=== PATIENT | female | born 1950 | race Caucasian/White ===

== ENCOUNTER 2019-10-10 16:56 | Emergency (ER) | payer OTHER ==
[2019-10-10 18:06] VITALS: BP 165/70; PULSE 77; TEMP 98; BMI 35.2
--- NOTE | 2019-10-10 19:09 | PDOC ---
Documentation entered by José Miguel Brambila SCRIBE, acting as scribe for Federico Sellers MD. Federico Sellers MD: This documentation has been prepared by the Kosta rodriguez Elijah, SCRIBE, under my direction and personally reviewed by me in its entirety. I confirm that the documentation accurately reflects all work, treatment, procedures, and medical decision making performed by me. History of Present Illness - General Chief Complaint: Injury Stated Complaint: RT HAND,HEAD INJURY History Source: Patient Exam Limitations: No Limitations - History of Present Illness Initial Comments: 10/10/19 17:16 Patient is a 69 year old female who presents today s/p fall yesterday afternoon. Patient reports that she was in the kitchen yesterday near the stove and fell backwards. Patient is unsure as to what promoted the fall but notes that she hit the back of her head, her back and both arms. At this time, the patient presents with pain in her right wrist, tenderness in her back and some head pain. Patient denies LOC, balance issues in the past, and vomiting. Allergies: NKA Past History - Past Medical History Allergies/Adverse Reactions: Allergies Allergy/AdvReac Type Severity Reaction Status Date / Time Penicillins Allergy Verified 10/10/19 17:21 Home Medications: Ambulatory Orders NK [No Known Home Medication] 10/10/19 Review of Systems - Review of Systems Comments:: 10/10/19 17:19 CONSTITUTIONAL: Absent: Fever, Chills, Diaphoresis, Generalized Weakness, Malaise, Loss of Appetite HEENT: Absent: Rhinorrhea, Nasal Congestion, Throat Pain, Throat Swelling, Difficulty Swallowing, Mouth Swelling, Ear Pain, Eye Pain, Visual Changes CARDIOVASCULAR: Absent: Chest Pain, Syncope, Palpitations, Irregular Heart Rate, Lightheadedness , Peripheral Edema RESPIRATORY: Absent: Cough, Shortness of Breath, SOB with Exertion, Orthopnea, Wheezing, Stridor, Hemoptysis GASTROINTESTINAL: Absent: Abdominal pain, Abdominal Distension, Nausea, Vomiting, Diarrhea, Constipation, Melena, Hematochezia GENITOURINARY: Absent: Dysuria, Frequency, Urgency, Hesitancy, Flank Pain, Genital Pain MUSCULOSKELETAL: +Wrist Pain +Back Pain +Head Pain Absent: Myalgia, Arthralgia SKIN: Absent: Rash, Itching, Pallor HEMEATOLOGIC/IMMUNOLOGIC: Absent: Easy Bleeding, Easy Bruising, Lymphadenopathy, Frequent infections ENDOCRINE: Absent: Unexplained Weight Gain, Unexplained Weight Loss, Heat Intolerance, Cold Intolerance NEUROLOGIC: Absent: Headache, Focal Weakness, Paresthesias, Vertigo, Lightheadedness, Unsteady Gait, Seizure, Mental Status Changes, Incontinence PSYCHIATRIC: Absent: Anxiety, Depression *Physical Exam - Vital Signs Last Vital Signs Temp Pulse Resp BP Pulse Ox 98 F 77 20 165/70 100 10/10/19 16:59 10/10/19 16:59 10/10/19 16:59 10/10/19 16:59 10/10/19 16:59 - Physical Exam 10/10/19 19:03 GENERAL: The patient is awake, alert, and fully oriented, in no acute distress. HEAD: The right parietal scalp has mild tenderness but no hematoma. EYES: Pupils equal, round and reactive to light, extraocular movements intact, sclera anicteric, conjunctiva clear. ENT: Ears normal, nares patent, oropharynx clear without exudates. Moist mucous membranes. NECK: Normal range of motion, supple without lymphadenopathy, JVD, or masses. LUNGS: Breath sounds equal, clear to auscultation bilaterally. No wheezes, and no crackles. HEART: Regular rate and rhythm, normal S1 and S2 without murmur, rub or gallop. ABDOMEN: Soft, nontender, normoactive bowel sounds. No guarding, no rebound. No masses. BACK: There is no bony spine tenderness from the cervical spine to the sacrum. EXTREMITIES: Normal range of motion, no edema. No clubbing or cyanosis. No cords or erythema. The right elbow is normal. The left elbow has ecchymosis, but normal range of motion and no bony tenderness. Pronation and supination along with flexion and extension is completely normal. The right wrist has mild diffuse swelling as well as tenderness over the distal radius and ulna. There is also some mild tenderness over the dorsal carpal bones. Skin is intact. Pulses are intact. Sensation is intact. Normal range of motion of all of the fingers. NEUROLOGICAL: Cranial nerves II through XII grossly intact. Normal speech, normal gait. PSYCH: Normal mood, normal affect. SKIN: Warm, Dry, normal turgor, no rashes or lesions noted. ED Treatment Course - RADIOLOGY Radiology Studies Ordered: Category Date Time Status WRIST W/HAND-RIGHT* [RAD] Stat Radiology 10/10/19 17:15 Taken Medical Decision Making - Medical Decision Making 10/10/19 18:55 69-year-old female was in her kitchen yesterday when she stepped back on some uneven carpet and fell backwards. She bumped her left elbow which has some bruising, but no difficulty with range of motion. She also landed on her right wrist which has some swelling and pain. Finally, she hit the right side of her head without loss of consciousness, and she has some mild headache in the region of her right scalp. Patient has no visual changes, no headache, but does have some scalp tenderness on the right side of her head. She has no nausea or vomiting. She has no change in balance. She has no other new neurological symptoms. On examination, there is mild tenderness in the right scalp. Pupils are normal , extraocular movements are normal, cranial nerves are normal. Neck is nontender with normal range of motion. Lungs, heart, abdomen all benign. Spine is nontender throughout. Extremities are notable for right wrist swelling and tenderness over the distal radius and ulna. The left elbow has ecchymosis over the ulna, but patient has no bony tenderness and normal range of motion along with normal supination and pronation. No risk for fracture in this region. Impression: Left elbow contusion without risk for fracture based on physical examination Right wrist swelling and pain, rule out fracture Minor head trauma in a 69-year-old female who is occasionally on aspirin. CT strongly recommended based on the guidelines. Patient initially agreed but then refused to have a head CT based on her concern regarding radiation exposure , against my advice. I was unable to convince her to have the CT. I advised her of the need for close watch for symptoms and return for imaging if anything should change. Plan: X-rays right wrist and hand Multiple views of the right wrist and hand show a nondisplaced fracture over the distal radius. Impression: Right distal radius fracture. Advised splinting. Patient refused but agreed to a multilayered dressing with cast padding and Jm bandage. Sling applied. Discharge - Discharge Information Problems reviewed: Yes Clinical Impression/Diagnosis: Head trauma Qualifiers: Encounter type: initial encounter Qualified Code(s): S09.90XA - Unspecified injury of head, initial encounter Fracture of right distal radius Qualifiers: Encounter type: initial encounter Fracture type: closed Fracture morphology: unspecified fracture morphology Qualified Code(s): S52.501A - Unspecified fracture of the lower end of right radius, initial encounter for closed fracture Contusion of left elbow Qualifiers: Encounter type: initial encounter Qualified Code(s): S50.02XA - Contusion of left elbow, initial encounter Condition: Stable Disposition: HOME - Admission No - Follow up/Referral Referrals: Titi White MD [Staff Physician] - Call tomorrow - Patient Discharge Instructions Patient Printed Discharge Instructions: How to Use a Sling, DI for Concussion, DI for Wrist Fracture Additional Instructions: Today you were evaluated after a fall. Your right wrist has a fracture and you should continue to use the Jm bandage for support along with the sling to maintain immobilization. Elevate the wrist, apply ice packs for 30 minutes every few hours over the bandage, take Tylenol as needed for pain, use the sling while up, remove it at bedtime, and follow-up with Dr. Titi White, orthopedic hand specialist in the next couple of days for follow-up of the fracture. Observe for any signs of headache, vomiting, visual changes or other neurological changes. If you develop any neurological symptoms, you should be seen again immediately in the emergency department for CT scan of the head. The left elbow has a bruise, but no signs of a fracture. This should heal with time over the next 2 weeks. Follow-up with your primary care physician and with Dr. White, orthopedic surgeon. - Post Discharge Activity
== END 2019-10-10 19:16 | disposition home or self-care (01) ==
LOC: FER 16:56
DX: S52.501A Unspecified fracture of the lower end of right radius, initial encounter for closed fracture (principal); S50.02XA Contusion of left elbow, initial encounter; S09.90XA Unspecified injury of head, initial encounter; W18.39XA Other fall on same level, initial encounter; Y93.89 Activity, other specified; Y92.89 Other specified places as the place of occurrence of the external cause
CPT/HCPCS: 73110-TC-RT-FY; 73130-TC-RT-FY; 99282-25